=== PATIENT | male | born 1980 | race Caucasian/White ===

== ENCOUNTER → 2016-09-30 | Outpatient (CLI) | payer BC ==
[2016-09-30 18:22] LABS: ALT/SGPT 44 U/L (12-78); AST/SGOT 26 U/L (15-37); BLOOD UREA NITROGEN 8 mg/dl (7-18); BUN/CREATININE RATIO 8.1 (10-20); CALCIUM 9.2 mg/dl (8.5-10.1); CARBON DIOXIDE 31 mmol/L (21-32); CHLORIDE 104 mmol/L (98-107); CREATININE 0.99 mg/dl (0.60-1.40); GLUCOSE 87 mg/dl (70-99); POTASSIUM 3.9 mmol/L (3.5-5.1); SODIUM 141 mmol/L (136-145)
[2016-09-30 18:24] LABS: ALB/GLOB RATIO 1.4 (0.9-2); ALKALINE PHOSPHATASE 103 U/L (45-117); CHOLESTEROL 237 mg/dl (0-200); CHOLESTEROL/HDL RATIO 4.6; HDL CHOLESTEROL 51 mg/dl; LDL CHOLESTEROL CALCULATED 141 mg/dl; TRIGLYCERIDES 225 mg/dl (0-150); VERY LOW DENSITY LIPOPROT CALC 45 mg/dl
== END | disposition home or self-care (01) ==
LOC: C.LABPVFM 13:45
PROVIDERS: ATTEND Nurse Practitioner Family
DX: E78.00 Pure hypercholesterolemia, unspecified (principal); Z20.2 Contact with and (suspected) exposure to infections with a predominantly sexual mode of transmission

== ENCOUNTER 2017-07-11 02:21 | Observation (INO) | payer BC ==
[~2017-07-11] VITALS: Ht 172.7 cm; Wt 69.0 kg
[2017-07-11] VITALS (8 sets, daily range): BP systolic 109–117; BP diastolic 66–74; PULSE 69–77; TEMP 36.5–36.9; O2SAT 95–100; Ht 172.7 cm; Wt 69.0 kg
[2017-07-11] MEDS ORDERED: SODIUM CHLORIDE 0.9% 1000ML 1,000 ML IV STA (02:35)
[2017-07-11] MEDS ORDERED: MoRPHine SULFATE 10 MG/ML CARP/VIAL IV STA (02:35)
[2017-07-11] MEDS ORDERED: ONDANSETRON INJ 2 MG/ML 2 ML VIAL IV STA (02:35)
--- NOTE | 2017-07-11 02:38 | EMERGENCY ROOM VISIT NOTE ---
History Report prepared by Neginiblizzie: Shakira Lira Under the Supervision of: Dr. Jose Sr M.D. First contact with patient: 02:28 Chief Complaint: ABDOMINAL PAIN Stated Complaint: SEVERE ABDOMINAL PAIN History of Present Illness The patient is a 36 year old male who presents to the Emergency Room with complaints of constant severe abdominal pain beginning about 8 hours ago. The patient states that his pain radiates to his right side. He denies any urinary symptoms, diarrhea, or vomiting. The patient denies any recent falls or injuries. The patient works at [employer]. Source of History: patient Onset: 8 hours ago Position: abdomen Symptom Intensity: severe Timing: constant Associated Symptoms: No vomiting, No diarrhea, No urinary symptoms Review of Systems See HPI for pertinent positives & negatives. A total of 10 systems reviewed and were otherwise negative. Family History Patient reports no known family medical history. Social History Smoking Status: Never Smoker Marital Status: Housing Status: lives with significant other Occupation Status: employed Current/Historical Medications Scheduled PRN Oxycodone/Acetaminophen 5MG/325MG (Percocet 5MG/325MG), 1 TABLET PO Q4H PRN for Pain Allergies Coded Allergies: No Known Allergies (Unverified , 07/11/17) Physical Exam Vital Signs Date Time Temp Pulse Resp B/P (MAP) Pulse Ox O2 Delivery O2 Flow Rate FiO2 07/11/17 05:54 100 20 128/90 98 07/11/17 04:29 109 17 139/90 98 Room Air 07/11/17 02:25 36.9 74 20 127/87 98 Room Air Physical Exam GENERAL: Patient is uncomfortable appearing and in moderate distress. HEENT: No acute trauma, normocephalic atraumatic, mucous membranes moist, no nasal congestion, no scleral icterus. NECK: No stridor, no adenopathy, no meningismus, trachea is midline. LUNGS: No dyspnea. Clear to auscultation and equal bilaterally. No wheeze, no rhonchi. HEART: Regular rate and rhythm. No murmurs, rubs, gallops appreciated. ABDOMEN: Moderate RLQ tenderness to palpation. Soft, bowel sounds positive, no masses appreciated, no peritonitis. BACK: No midline tenderness, no CVA tenderness EXTREMITIES: Normal motion all extremities, no cyanosis, no edema. NEUROLOGIC: Alert and oriented, no acute motor or sensory deficits, no focal weakness, cranial nerves grossly intact. SKIN: No rash, no jaundice, no diaphoresis. Medical Decision & Procedures ER Provider Diagnostic Interpretation: Radiology results and stated below per my review and radiologist interpretation: CT ABDOMEN & PELVIS With Contrast: The appendix is enlarged (12 mm) with appendicoliths and surrounding inflammatory change. Findings consistent with acute appendicitis. No free air. No abscess. The liver spleen, pancreas, gallbladder, and kidneys are unremarkable. Radiologist: Brodie Corley MD Laboratory Results 07/11/17 02:40 Red Blood Count 5.09, Mean Corpuscular Volume 86.8, Mean Corpuscular Hemoglobin 31.4, Mean Corpuscular Hemoglobin Concent 36.2, Mean Platelet Volume 10.4, Neutrophils (%) (Auto) 86.4, Lymphocytes (%) (Auto) 7.5, Monocytes (%) (Auto) 5.0, Eosinophils (%) (Auto) 0.7, Basophils (%) (Auto) 0.1, Neutrophils # (Auto) 12.87, Lymphocytes # (Auto) 1.12, Monocytes # (Auto) 0.75, Eosinophils # (Auto) 0.10, Basophils # (Auto) 0.01 07/11/17 02:40 Test 07/11/17 02:40 07/11/17 02:50 White Blood Count 14.89 K/uL (4.8-10.8) Red Blood Count 5.09 M/uL (4.7-6.1) Hemoglobin 16.0 g/dL (14.0-18.0) Hematocrit 44.2 % (42-52) Mean Corpuscular Volume 86.8 fL (80-100) Mean Corpuscular Hemoglobin 31.4 pg (25-34) Mean Corpuscular Hemoglobin Concent 36.2 g/dl (32-36) Platelet Count 242 K/uL (130-400) Mean Platelet Volume 10.4 fL (7.4-10.4) Neutrophils (%) (Auto) 86.4 % Lymphocytes (%) (Auto) 7.5 % Monocytes (%) (Auto) 5.0 % Eosinophils (%) (Auto) 0.7 % Basophils (%) (Auto) 0.1 % Neutrophils # (Auto) 12.87 K/uL (1.4-6.5) Lymphocytes # (Auto) 1.12 K/uL (1.2-3.4) Monocytes # (Auto) 0.75 K/uL (0.11-0.59) Eosinophils # (Auto) 0.10 K/uL (0-0.5) Basophils # (Auto) 0.01 K/uL (0-0.2) RDW Standard Deviation 39.1 fL (36.4-46.3) RDW Coefficient of Variation 12.3 % (11.5-14.5) Immature Granulocyte % (Auto) 0.3 % Immature Granulocyte # (Auto) 0.04 K/uL (0.00-0.02) Est Creatinine Clear Calc Drug Dose 94.4 ml/min Estimated GFR () 106.1 Estimated GFR (Non- 91.5 BUN/Creatinine Ratio 11.2 (10-20) Calcium Level 9.9 mg/dl (8.5-10.1) Total Bilirubin 1.3 mg/dl (0.2-1) Direct Bilirubin 0.2 mg/dl (0-0.2) Aspartate Amino Transf (AST/SGOT) 19 U/L (15-37) Alanine Aminotransferase (ALT/SGPT) 35 U/L (12-78) Alkaline Phosphatase 95 U/L (45-117) Total Protein 8.0 gm/dl (6.4-8.2) Albumin 4.3 gm/dl (3.4-5.0) Lipase 215 U/L (73-393) Bedside Hemoglobin 15.6 g/dl (14.0-18.0) Bedside Hematocrit 46 % (42-52) Bedside Sodium 142 mEq/L (135-144) Bedside Potassium 3.5 mEq/L (3.3-5.0) Bedside Chloride 100 mEq/L (101-112) Bedside Total CO2 29 mEq/l (24-31) Anion Gap 17.0 mmol/L (16-25) Bedside Blood Urea Nitrogen 11 mg/dl (7-18) Bedside Creatinine 1.0 mg/dl (0.6-1.3) Bedside Glucose (other) 113 mg/dl (70-99) Bedside Ionized Calcium (Clint) 1.29 mmol/l (1.12-1.32) Laboratory results as reviewed by me. Medications Administered Medications (Trade) Dose Ordered Sig/Becca Route Start Time Stop Time Status Last Admin Dose Admin Sodium Chloride 1,000 ml @ 999 mls/hr Q1H1M STAT IV 07/11/17 02:35 07/11/17 03:35 DC 07/11/17 02:35 999 MLS/HR Morphine Sulfate (MoRPHine SULFATE INJ) 8 mg NOW STAT IV 07/11/17 02:35 07/11/17 02:37 DC 07/11/17 02:44 8 MG Ondansetron HCl (Zofran Inj) 4 mg NOW STAT IV 07/11/17 02:35 07/11/17 02:37 DC 07/11/17 02:43 4 MG Cefoxitin Sodium 2000 mg/Dextrose 60 ml @ 120 mls/hr TODAY@0331 IV 07/11/17 03:31 07/11/17 04:00 DC 07/11/17 04:14 120 MLS/HR Lidocaine HCl (Xylocaine 1% Inj (Local)) 20 ml STK-MED ONCE .ROUTE 07/11/17 05:12 07/11/17 05:13 DC 07/11/17 07:04 9 ML Bacitracin (Bacitracin Oint) 45 appln STK-MED ONCE .ROUTE 07/11/17 05:12 07/11/17 05:13 DC 07/11/17 07:03 10 APPLN Bupivacaine HCl (Marcaine 0.5% MPF Inj) 30 ml STK-MED ONCE .ROUTE 07/11/17 05:12 07/11/17 05:13 DC 07/11/17 07:04 9 ML ED Course 0229: The patient was evaluated in room B7. A complete history and physical exam was performed. 0235: Ordered Zofran Inj 4 mg IV, Morphine Sulfate 8 mg IV, Sodium Chloride 1000 ml @ 999 mls/hr. 0344: Ordered Cefoxitin Sodium 2000 mg IV. 0350: Discussed the patient's case with Dr. Camarena-General Surgery. The patient will be evaluated for further treatment and disposition. 0422: Dr. Camarena will be taking the patient to the OR. Medical Decision Differential: Appendicitis, , MSK, Diverticulitis, UTI, Renal Colic, Bowel Obstruction, Aortic Pathology, amongst other pathologies entertained. Pleasant 36 yr old male with acute worsening RLQ abdominal pain and exam consistent with acute appendicitis, as is WBC elevation. Given how quickly this came on however I felt that imaging was warranted which confirmed diagnosis. Gen Surg in to see and took him to OR. Medication Reconcilliation Current Medication List: was personally reviewed by me Blood Pressure Screening Patient's blood pressure: Elevated blood pressure Blood pressure disposition: Referred to PCP (evaluated by surgeon ) Consults Time Called: [phone] Consulting Physician: Dr. Camarena-General Surgery Returned Call: [phone] Discussed the patient's case. The patient will be evaluated for further treatment and disposition. Impression Primary Impression: Acute appendicitis Scribe Attestation The scribe's documentation has been prepared under my direction and personally reviewed by me in its entirety. I confirm that the note above accurately reflects all work, treatment, procedures, and medical decision making performed by me. Departure Information Dispostion Other (Being taken to OR) Prescriptions Oxycodone/Acetaminophen 5MG/325MG (PERCOCET 5MG/325MG) Tab 1 TABLET PO Q4H Y for Pain, #18 TAB Prov: Marti Mckenzie ., JANELLE 07/11/17 Referrals Apoorva Hernandez (PCP) Patient Instructions My [facility]
[2017-07-11 02:55] LABS: BASO % 0.1 %; BASO ABS # 0.01 K/uL (0-0.2); COMPLETE YES; EOS % 0.7 %; HEMATOCRIT 44.2 % (42-52); IG% 0.3 %; LYMPH % 7.5 %; LYMPH ABS # 1.12 K/uL (1.2-3.4); MEAN CELL VOLUME 86.8 fL (80-100); MEAN CORPUSCULAR HEMOGLOBIN 31.4 pg (25-34); MEAN CORPUSCULAR HGB CONC 36.2 g/dl (32-36); MEAN PLATELET VOLUME 10.4 fL (7.4-10.4); NEUT % 86.4 %; PLATELET COUNT 242 K/uL (130-400); RED BLOOD COUNT 5.09 M/uL (4.7-6.1); WHITE BLOOD COUNT 14.89 K/uL (4.8-10.8)
[2017-07-11] MEDS ORDERED: OPTIRAY 320 IV PRN (03:00)
[2017-07-11 03:02] LABS: ISTAT HEMOGLOBIN 15.6 g/dl (14.0-18.0); ISTAT IONIZED CALCIUM 1.29 mmol/l (1.12-1.32)
[2017-07-11 03:14] LABS: BUN/CREATININE RATIO 11.2 (10-20); CALCIUM 9.9 mg/dl (8.5-10.1); CREATININE 1.05 mg/dl (0.60-1.40); POTASSIUM 3.4 mmol/L (3.5-5.1)
[2017-07-11] MEDS ORDERED: CEFOXITIN IV 2,000 MG in DEXTROSE 5% 50ML 50 ML IV SCH (03:31)
[2017-07-11] MEDS ORDERED: CEFOXITIN 2000MG/60 ML D5W IV STA (03:44)
[2017-07-11] MEDS ORDERED: HYDROmorphone INJ 1 MG/ML SYR IV PRN ×2 (04:00→07:30)
--- NOTE | 2017-07-11 04:20 | Surgery Consultation ---
Consultation Date of Consultation: Jul 11, 2017. Attending Physician: History of Present Illness The patient is a 36 year old male who presents to the Emergency Room with complaints of constant severe abdominal pain beginning about 8 hours ago. The patient states that his pain radiates to his right side. He denies any urinary symptoms, diarrhea, or vomiting. The patient denies any recent falls or injuries. The patient works at [employer]. I saw pt at ER, reviewed pt's H/P with pt, pt is still have RLQ pain, with nausea, no vomiting, pt denies fever. no diarrhea. Past Medical/Surgical History Medical Problems: (1) Finger sprain Status: Acute Family History Patient reports no known family medical history. Social History Smoking Status: Never Smoker Smokeless Tobacco Use: No Alcohol Use: none Drug Use: none Marital Status: Housing Status: lives with significant other Occupation Status: employed Allergies Coded Allergies: No Known Allergies (Unverified , 07/11/17) Home Medications No Active Prescriptions or Reported Meds Current Inpatient Medications Current Inpatient Medications Medications (Trade) Dose Ordered Sig/Becca Route Start Time Stop Time Status Last Admin Dose Admin Ioversol (Optiray 320) 100 ml UD PRN IV 07/11/17 03:00 07/15/17 02:59 Hydromorphone HCl (Dilaudid Inj) 1 mg Q1H PRN IV 07/11/17 04:00 07/25/17 03:59 Review of Systems Constitutional: No fever, No chills, No sweats, No weight loss, No weakness, No fatigue, No problem reported Eyes: No worsening of vision, No eye pain, No redness, No discharge, No diplopia, No problem reported ENT: No hearing loss, No unusual epistaxis, No nasal symptoms, No sore throat, No tinnitus, No dental problems, No trouble swallowing, No problem reported Respiratory: No cough, No sputum, No wheezing, No shortness of breath, No dyspnea on exertion, No dyspnea at rest, No hemoptysis, No problem reported Cardiovascular: No chest pain, No orthopnea, No PND, No edema, No claudication , No palpitations, No problem reported Abdomen: + pain, + nausea Musculoskeletal: No joint pain, No muscle pain, No swelling, No calf pain, No problem reported Genitourinary - Male: No hematuria, No dysuria, No urinary frequency, No urinary urgency, No urinary hesitancy, No urinary retention, No urinary incontinence, No penile discharge, No lesions, No impotence, No problem reported Neurologic: No memory loss, No paralysis, No weakness, No numbness/tingling, No vertigo, No balance problems, No problem reported Psychiatric: No depression symptoms, No anhedonism, No anxiety, No insomnia, No substance abuse, No problem reported Endocrine: No fatigue, No excessive thirst, No excessive urination, No problem reported Hematologic / Lymphatic: No abnormal bleeding/bruising, No clotting problems, No swollen lymph nodes, No night sweats, No problem reported Physical Exam Date Time Temp Pulse Resp B/P (MAP) Pulse Ox O2 Delivery O2 Flow Rate FiO2 07/11/17 02:25 36.9 74 20 127/87 98 Room Air General Appearance: WD/WN, + mild distress Head: normocephalic Eyes: normal inspection ENT: normal ENT inspection Neck: supple, no JVD Respiratory/Chest: chest non-tender, lungs clear, normal breath sounds, no respiratory distress Cardiovascular: regular rate, rhythm, no edema, no gallop, no JVD, no murmur Abdomen/GI: normal bowel sounds, soft, no organomegaly, no pulsatile mass, normal rectal exam, + tenderness (at RLQ, no rebound pain) Extremities/Musculoskelatal: normal inspection, no calf tenderness, normal capillary refill Neurologic/Psych: no motor/sensory deficits, alert, normal mood/affect Skin: normal color, warm/dry, no rash Laboratory Results Last 24 Hours Test 07/11/17 02:40 07/11/17 02:50 White Blood Count 14.89 K/uL Red Blood Count 5.09 M/uL Hemoglobin 16.0 g/dL Hematocrit 44.2 % Mean Corpuscular Volume 86.8 fL Mean Corpuscular Hemoglobin 31.4 pg Mean Corpuscular Hemoglobin Concent 36.2 g/dl Platelet Count 242 K/uL Mean Platelet Volume 10.4 fL Neutrophils (%) (Auto) 86.4 % Lymphocytes (%) (Auto) 7.5 % Monocytes (%) (Auto) 5.0 % Eosinophils (%) (Auto) 0.7 % Basophils (%) (Auto) 0.1 % Neutrophils # (Auto) 12.87 K/uL Lymphocytes # (Auto) 1.12 K/uL Monocytes # (Auto) 0.75 K/uL Eosinophils # (Auto) 0.10 K/uL Basophils # (Auto) 0.01 K/uL RDW Standard Deviation 39.1 fL RDW Coefficient of Variation 12.3 % Immature Granulocyte % (Auto) 0.3 % Immature Granulocyte # (Auto) 0.04 K/uL Sodium Level 138 mmol/L Potassium Level 3.4 mmol/L Chloride Level 103 mmol/L Carbon Dioxide Level 30 mmol/L Anion Gap 5.0 mmol/L 17.0 mmol/L Blood Urea Nitrogen 12 mg/dl Creatinine 1.05 mg/dl Est Creatinine Clear Calc Drug Dose 94.4 ml/min Estimated GFR () 106.1 Estimated GFR (Non- 91.5 BUN/Creatinine Ratio 11.2 Random Glucose 109 mg/dl Calcium Level 9.9 mg/dl Total Bilirubin 1.3 mg/dl Direct Bilirubin 0.2 mg/dl Aspartate Amino Transf (AST/SGOT) 19 U/L Alanine Aminotransferase (ALT/SGPT) 35 U/L Alkaline Phosphatase 95 U/L Total Protein 8.0 gm/dl Albumin 4.3 gm/dl Lipase 215 U/L Bedside Hemoglobin 15.6 g/dl Bedside Hematocrit 46 % Bedside Sodium 142 mEq/L Bedside Potassium 3.5 mEq/L Bedside Chloride 100 mEq/L Bedside Total CO2 29 mEq/l Bedside Blood Urea Nitrogen 11 mg/dl Bedside Creatinine 1.0 mg/dl Bedside Glucose (other) 113 mg/dl Bedside Ionized Calcium (Clint) 1.29 mmol/l Assessment & Plan CT scan- acute appendicitis Assessment:, pt is a 36 year old male who presents with 10 hours history RLQ pain, CT scan DX- acute appendicitis IMP: acute appendicitis Plan, I recommend to do laparoscopic appendectomy, possible open, D/W benefits, risks and alternatives of the procedure, the risks -infection, bleeding, abscess , injury bowel, pt understood, he agrees with the surgery, I answered all questions.
[2017-07-11] MEDS ORDERED: BACITRACIN OINT 15 GM TUBE ONE (05:12)
[2017-07-11] MEDS ORDERED: LIDOCAINE HCL 1% 20 ML VIAL ONE (05:12)
[2017-07-11] MEDS ORDERED: BUPIVACAINE 0.5 % 5 MG/1 ML MPF 30ML VIAL ONE (05:12)
--- NOTE | 2017-07-11 05:52 | History & Physical Bridge Note ---
H&P Re-Evaluation Bridge Note: I have examined the patient, reviewed the History & Physical and in the interval since the performance of the History & Physical I have noted the following changes of clinical significance: No changes noted
[2017-07-11] MEDS ORDERED: FENTANYL CITRATE INJ 50 MCG/1 ML 2 ML VIAL ONE ×2 (05:56→06:32)
[2017-07-11] MEDS ORDERED: MIDAZOLAM HCL 1 MG/ML 2ML VIAL ONE (05:56)
[2017-07-11] MEDS ORDERED: HYDROmorphone INJ 2 MG/ML SYR/VIAL ONE (06:31)
[2017-07-11] MEDS ORDERED: SUCCINYLCHOLINE CHLORIDE 20 MG/ML 10 ML VIAL IV ONE (06:43)
[2017-07-11] MEDS ORDERED: LIDOCAINE HCL 2% 2 ML VIAL (20MG/ML) ONE (06:43)
[2017-07-11] MEDS ORDERED: PROPOFOL IV EMULSION 10 MG/ML 20 ML VIAL IV ONE (06:43)
[2017-07-11] MEDS ORDERED: DEXAMETHASONE SOD INJ 4 MG/ML VIAL ONE (06:43)
[2017-07-11] MEDS ORDERED: HYDROmorphone INJ 0.5 MG/0.5 ML SYR IV PRN (07:15)
[2017-07-11] MEDS ORDERED: ONDANSETRON INJ 2 MG/ML 2 ML VIAL IV PRN ×2 (07:15→07:30)
[2017-07-11] MEDS ORDERED: FENTANYL CITRATE INJ 50 MCG/1 ML 2 ML VIAL IV PRN (07:15)
[2017-07-11] MEDS ORDERED: ATROPINE SULFATE 0.1 MG/ML 5ML SYR IV PRN (07:15)
[2017-07-11] MEDS ORDERED: PROMETHAZINE HCL INJ 12.5 MG in SODIUM CHLORIDE 0.9% 50ML 50 ML IV PRN (07:15)
[2017-07-11] MEDS ORDERED: EpHEDrine SULFATE INJ 50 MG/ML AMP IV PRN (07:15)
--- NOTE | 2017-07-11 07:24 | [facility] Post Operative Brief Note ---
Immediate Operative Summary Operative Date Jul 11, 2017. Pre-Operative Diagnosis Acute Appendicitis Post-Operative Diagnosis Acute Appendicitis Procedure(s) Performed Laparoscopic Appendectomy Surgeon Dr. Roni Camarena Instructor Adjunct Pharmacy Technician Surgeon(s) None Estimated Blood Loss 5ml Findings acute appendicitis Fluids (cc crystalloids) 1300ml Specimens A. Appendix Drains none Anesthesia general Complication(s) None Disposition Recovery Room / PACU
--- NOTE | 2017-07-11 07:26 | DIAGNOSTIC IMAGING REPORT ---
ABDOMEN AND PELVIS CT WITH IV CONTRAST CT DOSE: 296.89 mGy.cm HISTORY: Right lower quadrant abdominal pain. TECHNIQUE: Multiaxial CT images of the abdomen and pelvis were performed following the use of intravenous contrast. A dose lowering technique was utilized adhering to the principles of ALARA. COMPARISON STUDY: None. FINDINGS: The lung bases are clear. The liver, gallbladder, spleen, adrenal glands, kidneys, and pancreas are unremarkable. No retroperitoneal lymphadenopathy. The appendix is fluid-filled and distended up to 11 mm and contains an appendicolith. There is mild periappendiceal fat stranding. Findings are consistent with acute appendicitis. No evidence for bowel obstruction. Normal bladder. No retroperitoneal lymphadenopathy. IMPRESSION: Acute appendicitis containing a few appendicoliths. No perforation or abscess identified at this time. Electronically signed by: Vidal Pickett M.D. 07/11/2017 7:25 AM Dictated Date/Time: 07/11/2017 7:15 AM
[2017-07-11] MEDS ORDERED: ACETAMINOPHEN 325 MG TAB PO PRN (07:30)
[2017-07-11] MEDS ORDERED: OXYCODONE/ACETAMINOPHEN 5-325 TAB PO PRN (07:30)
[2017-07-11] MEDS ORDERED: IV FLUIDS COMPLETED PRN (07:45)
--- NOTE | 2017-07-11 08:34 | OPERATIVE REPORT ---
DATE OF OPERATION: 07/11/2017 PREOPERATIVE DIAGNOSIS: Acute appendicitis. POSTOPERATIVE DIAGNOSIS: Same. PROCEDURE: Laparoscopic appendectomy. SURGEON: Roni Camarena MD. ANESTHESIA: General. ESTIMATED BLOOD LOSS: About 5 mL. FINDINGS: Acute appendicitis. COMPLICATIONS: None. INDICATIONS FOR THE PROCEDURE: This is a 36-year-old gentleman who presented to the ED with 1 day history of right lower quadrant pain. The patient had a CT scan showing acute appendicitis. We decided to take the patient to the OR to do the laparoscopic appendectomy, possible open. I did talk to the patient about the benefit, risk and alternate of procedure. I indicated the risks may include but not limited such as bleeding, infection, abscess, injury to bowel. The patient understands. He signed informed consent. He agreed to proceed with the procedure. I answered all questions. DETAILS OF PROCEDURE: We brought the patient to the OR, put the patient in the supine position. The patient received SCD on bilateral legs to prevent DVT. Also, the patient received 2 gram cefoxitin IV for prophylactic antibiotic. The patient received general anesthesia without difficulty. The abdomen was prepped and draped in routine sterile fashion. After time out, I injected the local anesthesia by using 1% lidocaine mixed with 0.5% Marcaine just above umbilical, opened the lengthy incision just above umbilical, opened the fascia, opened peritoneum under direct vision. I put a Chinyere trocar in, connected to CO2 to create pneumoperitoneum. Flow rate is 6 liter per minute. Pressure not more than 14 mmHg. Once we got a nice pneumoperitoneum, we put a camera in and looked around the abdomen and showed normal findings on the stomach, small bowel, large bowel and liver. However, the appendix showed acute appendicitis with significant inflammation and enlarged appendix. Then, we put another two 5 mm trocar on the left lower quadrant area and then I used the harmonic to take down the appendiceal, rechecked no active bleeding. Then I used the Endo-SUN stable and transection at the base of the appendix, rechecked no active bleeding, no leak. Then we removed the appendix through the catcher bag. Then we reinserted Chinyere trocar in and connected to CO2 to create pneumoperitoneum again to look around the abdomen. No active bleeding, no leak from bowel, no injury to bowel. Then we removed all trocar under direct vision. No active bleeding from trocar sites. The pneumoperitoneum was released. Then I closed the umbilical incision, fascial layer by using #1 Vicryl [id number] x2, closed subcutaneous layer by using 2-0 Vicryl interruptedly and closed skin layers of 4-0 Vicryl continuous running. We closed another two 5 mm trocar site skin only by using 4-0 Vicryl. We put the dressing on. The patient tolerated the procedure well. All the instrument, needle and sponge count correct x2 at the end of case. The patient transferred to recovery room in stable condition. I did talk to the patient and family member about OR finding and procedure we did after procedure, they understand. I attest to the content of the Intraoperative Record and any orders documented therein. Any exception s are noted below.
--- NOTE | 2017-07-11 08:38 | Anesthesiology Progress Note ---
Anesthesia Post Op Note Date & Time Jul 11, 2017 at 08:38 Vital Signs Pain Intensity: 0 Vital Signs Past 12 Hours Date Time Temp Pulse Resp B/P (MAP) Pulse Ox O2 Delivery O2 Flow Rate FiO2 07/11/17 08:10 36.8 71 19 118/76 97 Nasal Cannula 2 07/11/17 08:00 72 17 119/76 96 Nasal Cannula 2 07/11/17 07:50 76 13 125/71 100 Nasal Cannula 4 07/11/17 07:40 69 14 124/71 100 Nasal Cannula 4 07/11/17 07:34 36.6 69 12 116/59 90 Room Air 07/11/17 05:54 100 20 128/90 98 07/11/17 04:29 109 17 139/90 98 Room Air 07/11/17 02:25 36.9 74 20 127/87 98 Room Air Notes Mental Status: alert / awake / arousable, participated in evaluation Pt Amnestic to Procedure: Yes Nausea / Vomiting: adequately controlled Pain: adequately controlled Airway Patency, RR, SpO2: stable & adequate BP & HR: stable & adequate Hydration State: stable & adequate Anesthetic Complications: no major complications apparent
[2017-07-11] MEDS ORDERED: D5W AND 1/2NSS + 20MEQ KCL 1,000 ML IV SCH (09:00)
[2017-07-11] MEDS ORDERED: OXYC-57 PO (12:17)
--- NOTE | 2017-07-11 12:23 | Discharge Instructions ---
Discharge Instructions Date of Service Jul 11, 2017. Admission Reason for Admission: Acute Appendicitis Discharge Discharge Diagnosis / Problem: same Discharge Goals Goal(s): Decrease discomfort, Improve function Activity Recommendations Activity Limitations: as noted below No heavy lifting over 20 pounds for 2 weeks No strenuous activity until cleared by surgeon No submerging incisions underwater for 2 weeks (no bathing, swimming, or hot tubs) No driving while taking narcotic pain medication or until you are pain free . Instructions / Follow-Up Instructions / Follow-Up You may shower in 4 days and then remove dressings. Sponge bath and wash hair in meantime. Try to keep dressings clean and dry After 4 day remove outer dressings. Leave steri strips on incisions for 7 days and then remove. Replace outer dressings daily after showering. Light activity and walking is encouraged You will be given narcotic pain medication (Percocet) as needed for moderate to severe pain. This medication may make you drowsy. You may take extra strength Tylenol or Ibuprofen as needed for mild pain. Follow-up in surgical office in 1-2 weeks please call [phone] to make an appointment You may return to work on Monday07/17/2017 with light duty Current Hospital Diet Patient's current hospital diet: Clear Liquid Diet Discharge Diet Recommended Diet: Full Liquid Diet (and then slowly advance to regular diet as tolerated, smaller frequent meals for next few days) Procedures Procedures Performed: Laparoscopic Appendectomy Pending Studies Studies pending at discharge: yes List of pending studies: appendix pathology will be reviewed at follow up visit Medical Emergencies . Who to Call and When: Medical Emergencies: If at any time you feel your situation is an emergency, please call 911 immediately. . Non-Emergent Contact Non-Emergency issues call your: Primary Care Provider, Surgeon Call Non-Emergent contact if: you have a fever, temperature is above 101, your pain is not controlled, your pain is worsening, your pain is unusual for you, wound has increased drainage, wound has increased redness, wound has increased pain . "Provider Documentation" section prepared by Marti Mckenzie. . VTE Core Measure Inpt VTE Proph given/why not?: SCD's [place] Drug Monitoring Program Search Results: patient reviewed within database, no issues identified
--- NOTE | 2017-07-11 12:25 | Surgery Progress Note ---
Surgery Progress Note Date of Service Jul 11, 2017. Subjective Post OP Day: POD # 0 s/p laparoscopic appendectomy + feeling well, + pain controlled, + nausea (after broth but not after other clear liquids), + diet (tolerating most of clear liquids), No complaints, No vomiting Objective Vital Signs: Date Time Temp Pulse Resp B/P (MAP) Pulse Ox O2 Delivery O2 Flow Rate FiO2 07/11/17 11:25 36.9 69 20 109/66 (80) 96 Room Air 07/11/17 10:25 36.5 69 16 116/72 (87) 99 Nasal Cannula 2.0 07/11/17 09:28 77 18 110/74 (86) 100 Nasal Cannula 2.0 07/11/17 08:55 75 18 112/74 (87) 99 Nasal Cannula 2.0 07/11/17 08:48 36.9 73 16 117/73 95 Nasal Cannula 2.0 07/11/17 08:45 95 Nasal Cannula 2.0 07/11/17 08:25 95 Nasal Cannula 2.0 07/11/17 08:25 36.9 73 16 117/73 (88) 98 Nasal Cannula 2.0 07/11/17 08:10 36.8 71 19 118/76 97 Nasal Cannula 2 07/11/17 08:00 72 17 119/76 96 Nasal Cannula 2 07/11/17 07:50 76 13 125/71 100 Nasal Cannula 4 07/11/17 07:40 69 14 124/71 100 Nasal Cannula 4 07/11/17 07:34 36.6 69 12 116/59 90 Room Air 07/11/17 05:54 100 20 128/90 98 07/11/17 04:29 109 17 139/90 98 Room Air 07/11/17 02:25 36.9 74 20 127/87 98 Room Air General Appearance: WD/WN, no apparent distress Head: normocephalic, atraumatic Neck: trachea midline Respiratory/Chest: no respiratory distress, no accessory muscle use Abdomen: non distended, soft, no organomegaly, no pulsatile mass Incision(s): clean, dry (dressings clean and dry) Laboratory Results: Results Past 24 Hours Test 07/11/17 02:40 07/11/17 02:50 Range/Units White Blood Count 14.89 4.8-10.8 K/uL Red Blood Count 5.09 4.7-6.1 M/uL Hemoglobin 16.0 14.0-18.0 g/dL Hematocrit 44.2 42-52 % Mean Corpuscular Volume 86.8 80-100 fL Mean Corpuscular Hemoglobin 31.4 25-34 pg Mean Corpuscular Hemoglobin Concent 36.2 32-36 g/dl Platelet Count 242 130-400 K/uL Mean Platelet Volume 10.4 7.4-10.4 fL Neutrophils (%) (Auto) 86.4 % Lymphocytes (%) (Auto) 7.5 % Monocytes (%) (Auto) 5.0 % Eosinophils (%) (Auto) 0.7 % Basophils (%) (Auto) 0.1 % Neutrophils # (Auto) 12.87 1.4-6.5 K/uL Lymphocytes # (Auto) 1.12 1.2-3.4 K/uL Monocytes # (Auto) 0.75 0.11-0.59 K/uL Eosinophils # (Auto) 0.10 0-0.5 K/uL Basophils # (Auto) 0.01 0-0.2 K/uL RDW Standard Deviation 39.1 36.4-46.3 fL RDW Coefficient of Variation 12.3 11.5-14.5 % Immature Granulocyte % (Auto) 0.3 % Immature Granulocyte # (Auto) 0.04 0.00-0.02 K/uL Sodium Level 138 136-145 mmol/L Potassium Level 3.4 3.5-5.1 mmol/L Chloride Level 103 98-107 mmol/L Carbon Dioxide Level 30 21-32 mmol/L Anion Gap 5.0 17.0 16-25 mmol/L Blood Urea Nitrogen 12 7-18 mg/dl Creatinine 1.05 0.60-1.40 mg/dl Est Creatinine Clear Calc Drug Dose 94.4 ml/min Estimated GFR () 106.1 Estimated GFR (Non- 91.5 BUN/Creatinine Ratio 11.2 10-20 Random Glucose 109 70-99 mg/dl Calcium Level 9.9 8.5-10.1 mg/dl Total Bilirubin 1.3 0.2-1 mg/dl Direct Bilirubin 0.2 0-0.2 mg/dl Aspartate Amino Transf (AST/SGOT) 19 15-37 U/L Alanine Aminotransferase (ALT/SGPT) 35 12-78 U/L Alkaline Phosphatase 95 45-117 U/L Total Protein 8.0 6.4-8.2 gm/dl Albumin 4.3 3.4-5.0 gm/dl Lipase 215 73-393 U/L Bedside Hemoglobin 15.6 14.0-18.0 g/dl Bedside Hematocrit 46 42-52 % Bedside Sodium 142 135-144 mEq/L Bedside Potassium 3.5 3.3-5.0 mEq/L Bedside Chloride 100 101-112 mEq/L Bedside Total CO2 29 24-31 mEq/l Bedside Blood Urea Nitrogen 11 7-18 mg/dl Bedside Creatinine 1.0 0.6-1.3 mg/dl Bedside Glucose (other) 113 70-99 mg/dl Bedside Ionized Calcium (Clint) 1.29 1.12-1.32 mmol/l Assessment & Plan POD # 0 s/p laparoscopic appendectomy -vitals stable - pain controlled - tolerating clear liquids Plan: May be discharged later today Rx for Percocet as needed for pain discharge instructions reviewed with patient Return to work on Tuesday 07/17 with restrictions Follow-up office in 1-[address] Camarena has seen patient, agrees with above
[2017-07-11] MEDS ORDERED: CEFTRIAXONE SOD INJ 1 GM in DEXTROSE 5% ADD-VANTAGE 50ML 50 ML IV SCH (16:00)
--- NOTE | 2017-07-19 13:20 | Discharge Summary ---
Discharge Summary Dates Admission Date / Time: Jul 11, 2017 at 07:28 Discharge Date: Jul 11, 2017 Dispostion / Condition Discharge Disposition: Home Condition at Discharge: Good Principal Diagnosis (1) Acute appendicitis Problem List (1) Left knee pain Consultations / Procedures Procedures: Laparoscopic Appendectomy Pending Studies / Follow-Up Appendix pathology will be reviewed at follow up visit Medication Reconciliation New Medications: Oxycodone/Acetaminophen 5MG/325MG (Percocet 5MG/325MG) Tab 1 TABLET PO Q4H PRN for Pain, #18 TAB Admission HPI Per the Admitting provider: The patient is a 36 year old male who presents to the Emergency Room with complaints of constant severe abdominal pain beginning about 8 hours ago. The patient states that his pain radiates to his right side. He denies any urinary symptoms, diarrhea, or vomiting. The patient denies any recent falls or injuries. The patient works at [employer]. I saw pt at ER, reviewed pt's H/P with pt, pt is still have RLQ pain, with nausea, no vomiting, pt denies fever. no diarrhea. Hospital Course (1) Acute appendicitis Patient was taken to operating room for laparoscopic possible open appendectomy. Patient tolerated procedure well without any complications. Was transferred to recovery room and then to medical/surgical floor for post operative care in stable condition. He was started on Clear liquids, IV fluids , IV Zofran as needed for nausea, PO Percocet as needed for pain with IV Dilaudid as breakthrough, activity as tolerated, and SCDs. He was also given dose of post op antibiotic of Ceftriaxone. He was evaluated later in the morning on POD # 0. Patient was feeling better. Preoperative pain resolved. Moderate surgical pain at incisions. Slight nausea with broth however tolerated rest of clear liquids. Afebrile since surgery. Was ready to go home. He was discharged home later on POD # 0. Overall hospital course was uneventful. Discharge Instructions as given to patient Copies To Primary Care Provider: Apoorva Hernandez.
== END 2017-07-11 13:00 | disposition home or self-care (01) ==
LOC: C.EDB 02:22 → C.3E 07:28 → ENRESERV 07:56
PROVIDERS: ADMIT Surgery; ATTEND Surgery
DX: K35.80 Unspecified acute appendicitis (principal)

== ENCOUNTER → 2018-03-07 | Outpatient (CLI) | payer BC ==
[~2018-03-07] MED LIST: ACET-1311 PO; MULT-506 PO; OXYC-57 PO; VITAMIN B12 PO
[2018-03-07 13:00] LABS: HEMOGLOBIN 16.5 g/dL (14.0-18.0); MEAN CELL VOLUME 87.5 fL (80-100); MEAN CORPUSCULAR HEMOGLOBIN 30.7 pg (25-34); MEAN CORPUSCULAR HGB CONC 35.1 g/dl (32-36); MEAN PLATELET VOLUME 11.2 fL (7.4-10.4); PLATELET COUNT 224 K/uL (130-400); RED CELL DISTRIBUTION WIDTH CV 12.5 % (11.5-14.5); RED CELL DISTRIBUTION WIDTH SD 39.9 fL (36.4-46.3); WHITE BLOOD COUNT 4.95 K/uL (4.8-10.8)
[2018-03-07 13:46] LABS: ALBUMIN 4.2 gm/dl (3.4-5.0); ALKALINE PHOSPHATASE 105 U/L (45-117); ALT/SGPT 82 U/L (12-78); AST/SGOT 38 U/L (15-37); BLOOD UREA NITROGEN 10 mg/dl (7-18); CALCIUM 9.3 mg/dl (8.5-10.1); CARBON DIOXIDE 27 mmol/L (21-32); CHOLESTEROL 220 mg/dl (0-200); CREATININE 0.99 mg/dl (0.60-1.40); GLUCOSE 89 mg/dl (70-99); LDL CHOLESTEROL CALCULATED 135 mg/dl; POTASSIUM 3.8 mmol/L (3.5-5.1); SODIUM 138 mmol/L (136-145); TOTAL PROTEIN 7.9 gm/dl (6.4-8.2)
== END | disposition home or self-care (01) ==
LOC: C.LAB 11:24
PROVIDERS: ATTEND Internal Medicine
DX: Z00.00 Encounter for general adult medical examination without abnormal findings (principal); E78.00 Pure hypercholesterolemia, unspecified; R53.83 Other fatigue

== ENCOUNTER → 2018-03-15 | Day surgery (SDC) | payer BC ==
[2018-03-01 08:37] VITALS: Ht 172.7 cm; Wt 72.7 kg
--- NOTE | 2018-03-13 08:28 | History and Physical: Surg Cnt ---
History & Physical Date Mar 13, 2018. Chief Complaint nasal obstruction History of Present Illness The patient is a 37 year old male with complaints of deviated septum, snoring Additional History Hepatic Disease: No Endocrine Disorder: No Kidney Disease: No Hypertension: No Heart Disease: No Bleeding Tendencies: No Infectious Diseases: No Allergies Coded Allergies: No Known Allergies (Unverified , 03/01/18) Home Medications Scheduled Acetaminophen (Tylenol), 650 MG PO QAM Multivitamin (Multivitamin), 1 TAB PO QAM [Vitamin B12], 1 TAB PO QAM Physical Examination Skin: warm/dry, no rash Eyes: normal inspection, EOMI, sclerae normal ENT: normal ENT inspection, pharynx normal Head: normocephalic, atraumatic Neck: supple, no adenopathy, trachea midline Respiratory/Chest: lungs clear, normal breath sounds, no respiratory distress Cardiovascular: regular rate, rhythm, no edema, no murmur Abdomen / GI: normal bowel sounds, non tender Back: normal inspection Extremities: normal inspection, normal range of motion Neurologic/Psych: no motor/sensory deficits, alert, normal reflexes, oriented x 3 Diagnosis septal deviation Plan of Treatment septoplasty, Celon turbinates
[~2018-03-15] VITALS: Ht 172.7 cm; Wt 72.7 kg
[~2018-03-15] MED LIST changes: +ATROPINE SULFATE 0.1 MG/ML 5ML SYR IV PRN; +BACITRACIN OINT 15 GM TUBE ONE; +CEFAZOLIN 1000MG IV PUSH 7.5 ML IV SCH; +CEFAZOLIN SOD 1 GM VIAL ONE; +EpHEDrine SULFATE INJ 50 MG/ML AMP IV PRN; +EpINEphrine INJ 1MG/ML AMP 1 MG/ML AMP ONE; +FENTANYL CITRATE INJ 50 MCG/1 ML 2 ML VIAL IV PRN; +FENTANYL CITRATE INJ 50 MCG/1 ML 2 ML VIAL ONE; +FLUMAZENIL 0.1 MG/1 ML 10 ML VIAL IV PRN; +GELATIN SPONGE 12-7MM ONE; +GLYCOPYRROLATE INJ 0.2 MG/ML VIAL ONE; +LIDO 2%/EPINEPHRINE 1:100000 20 ML VIAL ONE; +LIDOCAINE 4% MPF SOAK 5 ML = 1 DOSE ONE; +LIDOCAINE HCL 2% 2 ML VIAL (20MG/ML) ONE; +MIDAZOLAM HCL 1 MG/ML 2ML VIAL ONE; +NALOXONE HCL 0.4 MG/1 ML VIAL/CARP IV PRN; +NEOSTIGMINE METHYLSULFATE 5 MG/5 ML SYR ONE; +ONDANSETRON INJ 2 MG/ML 2 ML VIAL IV PRN; +ONDANSETRON INJ 2 MG/ML 2 ML VIAL ONE; +OXYCODONE/ACETAMINOPHEN 5-325 TAB ONE; +OXYCODONE/ACETAMINOPHEN 5-325 TAB PO PRN; +PROMETHAZINE HCL INJ 12.5 MG in SODIUM CHLORIDE 0.9% 50ML 50 ML IV PRN; +PROPOFOL IV EMULSION 10 MG/ML 20 ML VIAL ONE; +SODIUM CHLORIDE 0.9% 1000ML 1,000 ML IV SCH
[2018-03-15] MEDS: LACTATED RINGER'S 1000ML 1,000 ML IV SCH ×2 (06:49→08:56)
--- NOTE | 2018-03-15 08:12 | Discharge Instructions-SurgCtr ---
Discharge Instructions Date of Service Mar 15, 2018. Visit Reason for Visit: Septal Deviation Discharge Discharge Diagnosis / Problem: same Discharge Goals Goal(s): Improve function Activity Recommendations Activity Limitations: per Instructions/Follow-up section Anesthesia . Post Anesthesia Instructions: If you have had General Anesthesia or IV Sedation: * Do not drive today. * Resume driving when surgeon permits. * Do not make important decisions or sign legal documents today. * Call surgeon for: 1. Temperature elevations greater than 101 degrees F. 2. Uncontrollable pain. 3. Excessive bleeding. 4. Persistent nausea and vomiting. 5. Medication intolerance (nausea, vomiting or rash). * For nausea and vomiting use only clear liquids such as: tea, soda, bouillon until nausea subsides, then gradually increase diet as tolerated. * If you have any concerns or questions, call your surgeon's office. If physician is unavailable and it is an emergency, call 911 or go to the nearest emergency room. . Instructions / Follow-Up Instructions / Follow-Up ACTIVITY RECOMMENDATIONS: * Being up and around is good, but no strenuous activity, heavy lifting or physical exertion for one week. * Keep your head elevated 30 degrees when lying down or sleeping. * Do not blow your nose for 48 hours, sniff back instead. * Avoid hot showers. OVER THE COUNTER MEDICATIONS: * You may use Tylenol * Avoid aspirin or aspirin containing products, e.g. as they may increase bleeding. SPECIAL CARE INSTRUCTIONS: * Expect to have bloody drainage from your nose and/or down your throat for one to three days. Change drip pad as needed. * Begin irrigating your nose with saline solution today, at least six to ten times per day and sniff back to help remove old clots or crust. * You may experience nasal and facial congestion, pain and pressure, this is normal. * Please call with any significant and/or progressive pain, redness, swelling around the eyes, visual changes, fever of 101.5 degrees F, active bleeding or any problems or concerns. * If active bleeding occurs, spray the nose three times at one minute intervals with Afrin spray and call or cell phone: . If unable to reach the doctor, go to the nearest Emergency Department. Special Diet: * Avoid extremely hot fluids. FOLLOW UP VISIT: Follow-up Visit with Dr. Reed If not already scheduled, please call to schedule. Diet Recommendations Home Diet: no limitations Procedures Procedures Performed: Septoplasty, Celon Turbinate Pending Studies Studies pending at discharge: no Medical Emergencies . Who to Call and When: Medical Emergencies: If at any time you feel your situation is an emergency, please call 911 immediately. . Non-Emergent Contact Non-Emergency issues call your: Primary Care Provider . . "Provider Documentation" section prepared by Jacqueline Reed. [facility] [place] Drug Monitoring Program Search Results: no issues identified
--- NOTE | 2018-03-15 08:36 | Anesthesia Progress Nt - [facility] ---
Anesthesia Post Op Note Date & Time Mar 15, 2018 at 08:36 Vital Signs Pain Intensity: 6 Vital Signs Past 12 Hours Date Time Temp Pulse Resp B/P (MAP) Pulse Ox O2 Delivery O2 Flow Rate FiO2 03/15/18 08:06 36.2 65 16 119/78 98 Humidified Oxygen 6 Mask 03/15/18 06:32 36.7 70 20 119/82 (94) 95 Room Air Notes Mental Status: alert / awake / arousable, participated in evaluation Pt Amnestic to Procedure: Yes Nausea / Vomiting: adequately controlled Pain: adequately controlled Airway Patency, RR, SpO2: stable & adequate BP & HR: stable & adequate Hydration State: stable & adequate Anesthetic Complications: no major complications apparent
[2018-03-15 09:05] VITALS: TEMP 36.2
[2018-03-15 09:39] VITALS: BP 129/84; PULSE 61; O2SAT 99
--- NOTE | 2018-03-15 09:43 | OPERATIVE REPORT ---
DATE OF OPERATION: 03/15/2018 PREOPERATIVE DIAGNOSES: Septal deviation, chronic rhinitis. POSTOPERATIVE DIAGNOSES: Septal deviation, chronic rhinitis. PROCEDURE: Septoplasty with radiofrequency volume reduction of the inferior turbinates. SURGEON: Dr. Reed. ANESTHESIA: General endotracheal. COMPLICATIONS: None. BLOOD LOSS: 30 mL HISTORY: This 37-year-old gentleman is unable to breathe through his nose, has severe septal deviation. DETAILS OF PROCEDURE: The patient brought to the operating room and placed in supine position. General endotracheal anesthesia was induced, prepped, draped in usual sterile manner. Nose decongested using topical cottonoids with a solution of 4 mL of 4% Xylocaine mixed with 1 mL of epinephrine. Injection of 2% Xylocaine with 1:100,000 strength epinephrine was also used. The inferior turbinates were treated with radiofrequency volume reduction using the [employer] machine creating 4 lesions in each inferior turbinate. The inferior turbinates were fractured laterally. The left hemitransfixion incision was made, mucoperichondrium was elevated off the left side of the septum. The superior inferior tunnels were made. Cartilage inferiorly from the vomer maxillary crest and posteriorly from the perpendicular plate at the ethmoid, bilateral posterior tunnels were made. There was a rather large bony deviation of the perpendicular ethmoid toward the left superiorly and toward the right posteriorly and inferiorly. There was also a displacement of the cartilage from the vomer maxillary crest toward the left side inferiorly. The cartilage was trimmed inferiorly. The deviated portion of the perpendicular plate of the ethmoid was removed in small pieces using the [place]o-Cotter rongeurs. The bony spur inferiorly along with cartilaginous spur was removed using osteotome, the [place]-Cotter rongeurs and the Micaela forceps returning the septum to the midline. The septum was closed using a continuous mattress suture of 4-0 plain gut. Anterior nasal packing of Gelfoam was placed. The patient tolerated the procedure well and was taken to the recovery area in satisfactory condition. I attest to the content of the Intraoperative Record and any orders documented therein. Any exception s are noted below.
== END | disposition home or self-care (01) ==
LOC: X.SURG 06:21
PROVIDERS: ATTEND Otolaryngology
DX: J34.2 Deviated nasal septum (principal); J31.0 Chronic rhinitis; J45.909 Unspecified asthma, uncomplicated

== ENCOUNTER 2022-08-11 12:10 | Inpatient (IN) ==
--- NOTE | 2022-08-11 12:22 | Emergency Department Note ---
History of Present Illness General Chief complaint: Abdominal Pain Stated complaint: SHARP ABD PAIN UPPER RIGHT FOR 2 DAYS Time Seen by Provider: 08/11/22 12:20 History of Present Illness Maximum Pain Intensity: 8 This 41-year-old male patient presents to the emergency department for eval uation of sharp and stabbing right upper quadrant abdominal pain radiating to his back and RLQ for the past 2 days. Initially he thought that it was gas, but has tried [id number] gas relief medications without improvement. The pain is intermittent, but has periods of more severe pain. Pain is worse after eating. Had some nausea this morning, but no vomiting. Yesterday he had some burning with urination. Still has his gallbladder, but had appendectomy 3 years ago. Denies any chest pain or SOB. Soft formed BMs once a day. Has not taken anything else for the symptoms. He last ate/drank around 8 am this morning - Red Bull and Velvetta crackers. Takes a daily multivitamin, but no other medication on a regular basis. Home Medications Medication Instructions Recorded Confirmed Type ascorbic acid (vitamin C) 500 mg 500 mg PO QAM 09/26/18 08/11/22 History tablet (Vitamin C) multivitamin 1 tab PO QAM 09/26/18 08/11/22 History cholecalciferol (vitamin D3) 25 25 mcg PO QAM 04/30/21 08/11/22 History mcg (1,000 unit) capsule amoxicillin 875 mg-potassium 1 tab PO BID 2 weeks #28 tabs 08/12/22 Rx clavulanate 125 mg tablet Allergies Allergy/AdvReac Type Severity Reaction Status Date / Time No Known Allergies Allergy Verified 08/11/22 16:19 Past Med/Surg History Medical History Dyslipidemia monitoring GERD (gastroesophageal reflux disease) diet controlled. Surgical History History of appendectomy S/P correction of deviated nasal septum Family History Grandmother (Maternal) Familial stomach cancer Grandmother (Maternal) Myocardial infarction Mother Hypertension Dyslipidemia Arthritis Denies family history of Prostate cancer Breast cancer Colorectal cancer Social History Smoking Status: Never smoker Second Hand Exposure: No; Do You Dip or Chew Tobacco: No; Tobacco Cessation Education Requested by Patient: No Hx Alcohol Use: Yes Alcohol type: beer Alcohol Intake Frequency: 2-4 x/Month Hx Substance Use: No Preferred Language: [place] Islander Communication Ability: Effective Visual Impairment: Limited Hearing Ability: Normal Digital Advisor Required: No Beliefs That Will Affect Care: None marital status: Current Living Situation: Spouse current occupational status: employed Other Information That Helps Us Care for You: No Feels Safe at Home: Yes Safety Concerns: Feels Safe At This Time Childhood Exposure to Second-Hand Smoke: No caffeine: Yes Dental Care, Regularly: Yes Physical Activity Frequency: Does not Exercise Seatbelt Use: always Sunscreen Use: Yes Do you think of yourself as: lesbian/arora/homosexual Assistive Devices: None Review of Systems See HPI for pertinent positives & negatives. Physical Exam Vital Signs Vital Signs - 24 hr 08/11/22 16:00 Pulse Rate [Finger] 76 Pulse Rhythm [Finger] Regular Pulse Strength [Finger] Normal Respiratory Rate 20 Respiratory Effort / Characteristics Non-Labored Respiratory Depth Normal Respiratory Pattern Regular Blood Pressure [Left Arm] 136/94 Blood Pressure Mean [Left Arm] 108 Blood Pressure Position [Left Arm] Lying Pulse Oximetry 98 Oxygen Delivery Method Room Air VITALS: Vitals are noted on the nurse's note and reviewed by myself. GENERAL: Non toxic, no acute distress, non-diaphoretic. SKIN: Capillary refill <2 sec. EARS: External auditory canals clear, tympanic membranes pearly [place] without erythema or effusion bilaterally. EYES: PERRLA. EOMI. Conjunctivae without injection, sclerae without icterus. NOSE: Patent without discharge. MOUTH: Mucous membranes moist. Uvula midline. Airway patent. NECK: Supple without nuchal rigidity. HEART: Regular rate and rhythm without murmurs gallops or rubs. LUNGS: Clear to auscultation bilaterally without wheezes, rales or rhonchi. No retractions or accessory muscle use. ABDOMEN: Positive bowel sounds x 4. Normal tympanic percussion. Soft, maximally tender to palpation in the right upper quadrant and epigastric area, but also tender to palpation in the right lower quadrant, without masses or organomegaly. Villareal sign mildly positive. No guarding or rebound tenderness. MUSCULOSKELETAL: No gross musculoskeletal defects. NEURO: Patient was alert and oriented to person place and time. No focal neurological deficits. Course Administered Medications Sodium Chloride (Nss 1000ml) 1,000 mls @ 110 mls/hr IV .Q9H6M ARACELI Stop: 09/10/22 20:52 Last Admin: 08/12/22 06:01 Dose: 110 mls/hr Documented By: Infusion: 08/12/22 06:01 Dose: 110 mls/hr Documented By: Admin: 08/11/22 21:31 Dose: 110 mls/hr Documented By: AB Piperacillin Sod/Tazobactam (Sod 3.375 gm/ Dextrose) 115 mls @ 28.75 mls/hr IV Q8H ARACELI; Protocol Stop: 08/21/22 21:14 Last Admin: 08/12/22 13:29 Dose: 28.8 mls/hr Documented By: Infusion: 08/12/22 09:46 Dose: 0 mls/hr Documented By: Admin: 08/12/22 05:21 Dose: 28.8 mls/hr Documented By: Infusion: 08/12/22 01:34 Dose: 0 mls/hr Documented By: Admin: 08/11/22 21:31 Dose: 28.8 mls/hr Documented By: Acetaminophen (Ofirmev) 1,000 mg in 100 mls @ 400 mls/hr IV Q8H PRN PRN Reason: Mild Pain Stop: 08/14/22 20:52 Last Infusion: 08/12/22 05:44 Dose: 0 mls/hr Documented By: Admin: 08/12/22 05:25 Dose: 400 mls/hr Documented By: Discontinued Medications Sodium Chloride (Nss 1000ml) 1,000 mls @ 999 mls/hr IV .Q1H1M STA Stop: 08/11/22 13:31 Last Infusion: 08/11/22 14:52 Dose: 0 mls/hr Documented By: Admin: 08/11/22 12:55 Dose: 999 mls/hr Documented By: ASHISH Piperacillin Sod/Tazobactam Sod (Zosyn) 4.5 gm in 120 mls @ 240 mls/hr IV NOW ONE Stop: 08/11/22 16:11 Last Infusion: 08/11/22 17:58 Dose: 0 mls/hr Documented By: Admin: 08/11/22 15:52 Dose: 240 mls/hr Documented By: ASHISH Ioversol (Optiray 350 100ml) 94 ml IV ONCE ONE Stop: 08/11/22 14:38 Last Admin: 08/11/22 14:37 Dose: 94 ml Documented By: PINEDA Ketorolac Tromethamine (Ketorolac Tromethamine 15 Mg/Ml Vial) 10 mg IV NOW STA Stop: 08/11/22 12:32 Last Admin: 08/11/22 12:55 Dose: 10 mg Documented By: ASHISH Morphine Sulfate (Morphine Sulfate 4 Mg/Ml 1 Ml Carp\Vial) 4 mg IV NOW STA Stop: 08/11/22 15:00 Last Admin: 08/11/22 15:26 Dose: 4 mg Documented By: ASHISH Morphine Sulfate (Morphine Sulfate 4 Mg/Ml 1 Ml Carp\Vial) 4 mg IV NOW STA Stop: 08/11/22 18:40 Last Admin: 08/11/22 19:28 Dose: 4 mg Documented By: JAX Ondansetron HCl (Ondansetron Inj 2 Mg/Ml 2 Ml Vial) 4 mg IV NOW STA Stop: 08/11/22 15:00 Last Admin: 08/11/22 15:26 Dose: 4 mg Documented By: ASHISH Ondansetron HCl (Ondansetron Inj 2 Mg/Ml 2 Ml Vial) 4 mg IV NOW STA Stop: 08/11/22 18:40 Last Admin: 08/11/22 19:28 Dose: 4 mg Documented By: JAX Medical Decision Making Differential Diagnosis Differential diagnosis includes hepatitis, pancreatitis, cholecystitis, ch olelithiasis, appendicitis, kidney stone, pyelonephritis, UTI, gastritis, gastroenteritis, mesenteric adenitis, obstruction, constipation, hernia, abdominal abscess, perforation, diverticulitis, IBD, ischemic colitis, abdominal aortic aneurysm, testicular torsion, or others. Laboratory Data Attestation: I reviewed the patient's lab results. 08/11/22 12:50 08/11/22 12:50 Lab Results 08/11/22 08/11/22 08/11/22 Range/Units 12:42 12:50 12:50 WBC 11.67 H (4.8-10.8) K/ul RBC 5.85 (4.63-6.08) M/uL Hgb 18.1 H (14.0-18.0) g/dl Hct 50.2 (40.1-51.0) % MCV 85.8 (80.0-100.0) fL MCH 30.9 (25.0-34.0) pg MCHC 36.1 H (32.0-36.0) g/dL RDW Std Deviation 38.0 (36.4-46.3) fL RDW Coeff of Ary 12.1 (11.5-14.5) % Plt Count 286 (130-400) K/uL MPV 11.0 (9.4-12.4) fL Immature Gran % (Auto) 0.4 % Neut % (Auto) 74.5 % Lymph % (Auto) 14.6 % [place] % (Auto) 6.1 % Eos % (Auto) 4.2 % Baso % (Auto) 0.2 % Neut # (Auto) 8.70 H (1.4-6.5) K/uL Lymph # (Auto) 1.70 (1.2-3.4) K/uL [place] # (Auto) 0.71 (0.24-0.82) K/uL Eos # (Auto) 0.49 (0-0.50) K/uL Baso # (Auto) 0.02 (0-0.2) K/uL Immature Gran # (Auto) 0.05 H (0.00-0.02) K/uL Sodium 140 (136-145) mmol/L Potassium 3.4 L (3.5-5.1) mmol/L Chloride 102 (98-107) mmol/L Carbon Dioxide 29 (21-32) mmol/L Anion Gap 9 (3-11) BUN 10 (6-23) mg/dl Creatinine 1.00 (0.6-1.4) mg/dl Est Cr Clr Drug Dosing 95.0 ml/min Est GFR ( Amer) 108.6 ml/min Est GFR (Non-Af Amer) 93.7 ml/min BUN/Creatinine Ratio 10.0 (10-20) Glucose 88 (70-99(Fasting)) mg/dl Calcium 10.3 H (8.5-10.1) mg/dl Total Bilirubin 1.3 H (0.2-1.0) mg/dl AST 29 (13-39) U/L ALT 57 H (7-52) U/L Alkaline Phosphatase 113 H (34-104) U/L Troponin I High Sens 3.2 (0-20) pg/ml Total Protein 8.8 H (6.0-8.3) gm/dl Albumin 5.3 H (3.4-5.0) gm/dl Globulin 3.5 (2.5-4.0) gm/dl Albumin/Globulin Ratio 1.5 (0.9-2) Lipase 65 (11-82) U/L Urine Color Yellow Urine Appearance Clear (Clear) Urine pH 7.0 (4.5-7.5) Ur Specific [place] 1.023 (1.000-1.030) Urine Protein Negative (Negative) Urine Glucose (UA) Negative (Negative) Urine Ketones Negative (Negative) Urine Blood Negative (Negative) Urine Nitrite Negative (Negative) Urine Bilirubin Negative (Negative) Urine Urobilinogen Negative (Negative) Ur Leukocyte Esterase Negative (Negative) Imaging Data Radiologist's Impression: Abdomen/Pelvis CT 08/11/22 12:[address] WITH IV CONTRAST CT DOSE: 312.45 mGy.cm HISTORY: RUQ and RLQ abdominal pain TECHNIQUE: Multiaxial CT images of the abdomen and pelvis were performed following the use of intravenous contrast. A dose lowering technique was utilized adhering to the principles of ALARA. COMPARISON STUDY: Abdomen and pelvis CT 07/11/2017. FINDINGS: The lung bases are clear. No pneumoperitoneum. No pneumatosis is status post partial appendectomy. There is a 3 cm residual appendiceal stump identified which is distended and filled with fluid. This measures up to 16 mm in diameter. There is surrounding inflammatory change and a few small lymph nodes. Therefore, this is consistent with residual stump appendicitis. This is best seen on image 307. No perforation or abscess identified at this time. Hepatic steatosis. No hepatic or splenic masses. The gallbladder, pancreas, adrenal glands, and kidneys are unremarkable. No hydronephrosis. The bladder is unremarkable. The prostate gland is mildly enlarged. Trace pelvic free fluid. No dilated loops of small bowel to suggest an obstruction. No retroperitoneal lymphadenopathy. The main portal vein is patent. Normal caliber abdominal aorta. IMPRESSION: There is a 3 cm residual appendiceal stump identified which is distended and filled with fluid. This measures up to 16 mm in diameter. There is surrounding inflammatory change and a few small lymph nodes. Therefore, this is consistent with residual stump appendicitis. Surgical consultation recommended. ACT 112: Negative or not required by law. Electronically signed by: Vidal Pickett M.D. 08/11/2022 3:21 PM Gallbladder Ultrasound 08/11/22 12:31 ABDOMINAL ULTRASOUND, RIGHT UPPER QUADRANT HISTORY: RUQ Abdominal pain. COMPARISON: Abdomen and pelvis CT 07/11/2017. FINDINGS: Pancreas: The pancreatic tail is obscured by overlying bowel gas. The remaining portions of the pancreas are within normal limits. Liver: The liver is echogenic consistent with fatty change. Gallbladder: No gallbladder wall thickening. No gallstones. CBD: 3 mm. Right kidney: No hydronephrosis. IMPRESSION: 1. Normal gallbladder. No gallstones. 2. Hepatic steatosis. ACT 112: Negative or not required by law. Electronically signed by: Vidal Pickett M.D. 08/11/2022 3:55 PM MDM Narrative I examined the patient. An IV lock was placed and labs were drawn. The patient was given 1 L normal saline solution bolus. He was given Toradol 10 mg IV for pain followed by morphine 4 mg IV x2 and Zofran 4 mg IV x2. White blood cell count was elevated 11.67 and hemoglobin 18.1. Potassium low at 3.4. Total bilirubin elevated at 1.3, ALT elevated at 57, and alk phos elevated at 113. Urinalysis negative for blood or infection. COVID-negative. RUQ ultrasound was reviewed by myself and read by radiology as above and showed normal gallbladder with no gallstones or evidence of cholecystitis. Hepatic steatosis is present. CT scan of the abdomen pelvis with IV contrast was reviewed by myself and read by radiology as above and shows a 3 cm residual appendiceal stump identified which is distended and filled with fluid. This measures up to 16 mm in diameter. There is surrounding inflammatory changes and a few small lymph nodes. Therefore, this is consistent with residual stump appendicitis. The patient was given Zosyn 4.5 g IV. I spoke with general surgery who will admit the patient for IV antibiotics to see how he responds over the next 12 to 24 hours. They will tentatively plan a diagnostic laparoscopy with possible appendectomy tomorrow. Please refer to their dictation for further details. The patient was in stable condition at time of transfer of care. Impression & Plan Recurrent appendicitis Discharge Plan Visit Data Chief Complaint: Abdominal Pain Stated Complaint: SHARP ABD PAIN UPPER RIGHT FOR 2 DAYS ED Provider: Alex Rice ED Midlevel Provider: Mariah Aly Discharge Problem: Recurrent appendicitis Patient Disposition: Admitted As Inpatient Condition: Good Discharge Instructions Interventions: ED Discharge Assessment Last Done: 08/11/22 20:47
[2022-08-11] MEDS ORDERED: KETOROLAC TROMETHAMINE 15 MG/ML VIAL IV STA (12:31)
[2022-08-11] MEDS ORDERED: SODIUM CHLORIDE 0.9% 1000ML 1,000 ML IV STA (12:31)
[2022-08-11 13:11] LABS: Basophils # (auto) 0.02 K/uL (0-0.2); Basophils % (auto) 0.2 %; Eosinophils # (auto) 0.49 K/uL (0-0.50); Eosinophils % (auto) 4.2 %; Hematocrit (blood only) 50.2 % (40.1-51.0); Hemoglobin 18.1 g/dl (14.0-18.0); Immature Granulocytes # (auto) 0.05 K/uL (0.00-0.02); Immature Granulocytes % (auto) 0.4 %; Lymphocytes % (auto) 14.6 %; Mean Corpuscular Hemoglobin 30.9 pg (25.0-34.0); Mean Corpuscular Hgb Conc 36.1 g/dL (32.0-36.0); Mean Corpuscular Volume 85.8 fL (80.0-100.0); Monocytes # (auto) 0.71 K/uL (0.24-0.82); Monocytes % (auto) 6.1 %; Neutrophils % (auto) 74.5 %; Platelet Count 286 K/uL (130-400); RDW Coefficient of Variation 12.1 % (11.5-14.5); Red Blood Count 5.85 M/uL (4.63-6.08); White Blood Count 11.67 K/ul (4.8-10.8)
[2022-08-11 13:21] LABS: Appearance Urine Clear (Clear); Bilirubin Urine Negative (Negative); Blood Urine Negative (Negative); Color Urine Yellow; Glucose Urine UA Negative (Negative); Ketones Urine Negative (Negative); Leukocyte Esterase Urine Negative (Negative); Nitrite Urine Negative (Negative); Protein Urine Negative (Negative); Specific Gravity Urine 1.023 (1.000-1.030); Urobilinogen Urine Negative (Negative)
[2022-08-11 13:37] LABS: Albumin Globulin Ratio 1.5 (0.9-2); Albumin Level 5.3 gm/dl (3.4-5.0); Bilirubin,Total 1.3 mg/dl (0.2-1.0); Calcium 10.3 mg/dl (8.5-10.1); Est GFR (African American) 108.6 ml/min; Est GFR (Non-African American) 93.7 ml/min; Globulin 3.5 gm/dl (2.5-4.0); Potassium 3.4 mmol/L (3.5-5.1); Total Protein 8.8 gm/dl (6.0-8.3)
[2022-08-11 13:38] LABS: Troponin I High Sensitivity 3.2 pg/ml (0-20)
[2022-08-11] MEDS ORDERED: OPTIRAY 350 100ml IV ONE (14:37)
[2022-08-11] MEDS ORDERED: ONDANSETRON INJ 2 MG/ML 2 ML VIAL IV STA ×2 (14:59→18:39)
[2022-08-11] MEDS ORDERED: MoRPHine SULFATE 4 MG/ML 1 ML CARP\\VIAL IV STA ×2 (14:59→18:39)
--- NOTE | 2022-08-11 15:22 | CT Scan Report ---
ABDOMEN AND PELVIS CT WITH IV CONTRAST CT DOSE: 312.45 mGy.cm HISTORY: RUQ and RLQ abdominal pain TECHNIQUE: Multiaxial CT images of the abdomen and pelvis were performed following the use of intrave nous contrast. A dose lowering technique was utilized adhering to the principles of ALARA. COMPARISON STUDY: Abdomen and pelvis CT 07/11/2017. FINDINGS: The lung bases are clear. No pneumoperitoneum. No pneumatosis is status post partial append ectomy. There is a 3 cm residual appendiceal stump identified which is distended and filled with flui d. This measures up to 16 mm in diameter. There is surrounding inflammatory change and a few small ly mph nodes. Therefore, this is consistent with residual stump appendicitis. This is best seen on image 307. No perforation or abscess identified at this time. Hepatic steatosis. No hepatic or splenic mas ses. The gallbladder, pancreas, adrenal glands, and kidneys are unremarkable. No hydronephrosis. The bladder is unremarkable. The prostate gland is mildly enlarged. Trace pelvic free fluid. No dilated l oops of small bowel to suggest an obstruction. No retroperitoneal lymphadenopathy. The main portal ve in is patent. Normal caliber abdominal aorta. IMPRESSION: There is a 3 cm residual appendiceal stump identified which is distended and filled with fluid. This measures up to 16 mm in diameter. There is surrounding inflammatory change and a few small lymph node s. Therefore, this is consistent with residual stump appendicitis. Surgical consultation recommended. ACT 112: Negative or not required by law. Electronically signed by: Vidal Pickett M.D. 08/11/2022 3:21 PM
[2022-08-11] MEDS ORDERED: PIPERACILLIN/TAZOBACTAM 4.5 GM/120 ML BAG IV ONE (15:42)
--- NOTE | 2022-08-11 15:56 | Ultrasound Report ---
ABDOMINAL ULTRASOUND, RIGHT UPPER QUADRANT HISTORY: RUQ Abdominal pain. COMPARISON: Abdomen and pelvis CT 07/11/2017. FINDINGS: Pancreas: The pancreatic tail is obscured by overlying bowel gas. The remaining portions of the pancr eas are within normal limits. Liver: The liver is echogenic consistent with fatty change. Gallbladder: No gallbladder wall thickening. No gallstones. CBD: 3 mm. Right kidney: No hydronephrosis. IMPRESSION: 1. Normal gallbladder. No gallstones. 2. Hepatic steatosis. ACT 112: Negative or not required by law. Electronically signed by: Vidal Pickett M.D. 08/11/2022 3:55 PM
--- NOTE | 2022-08-11 17:26 | History & Physical Report ---
Date of Service August 11, 2022 Assessment & Plan (1) Recurrent appendicitis: Plan: CT images and results personally viewed by myself, he does have what appears to be an appendiceal stump appendicitis with surrounding inflammation Will admit the patient to the surgical service keep him n.p.o. and start IV antibiotics We will see how responds over the next 12 to 24 hours We will tentatively plan on a diagnostic laparoscopy, possible appendectomy, possible open tomorrow History of Present Illness Chief Complaint: Abdominal pain Primary Care Provider: Ruddy Alonso DO This is a 41-year-old male presents emergency room with 48 hours of right-sided abdominal pain. He describes the pain as starting in his right upper quadrant and eventually radiating down to his right lower quadrant. That sharp in nature and relieved by nothing. He has a history of a laparoscopic appendectomy in June [address] Camarena. Otherwise no other abdominal surgeries. He also has some associated nausea without emesis. Denies any fevers or chills. He denies any constipation or diarrhea. Denies any hematochezia or melena. He is relatively healthy and does not take any medications other than vitamins. Allergies Allergy/AdvReac Type Severity Reaction Status Date / Time No Known Allergies Allergy Verified 08/11/22 16:19 Home Medications Medication Instructions Recorded Confirmed Type ascorbic acid (vitamin C) 500 mg 500 mg PO QAM 09/26/18 08/11/22 History tablet (Vitamin C) multivitamin 1 tab PO QAM 09/26/18 08/11/22 History cholecalciferol (vitamin D3) 25 25 mcg PO QAM 04/30/21 08/11/22 History mcg (1,000 unit) capsule Past Med/Surg History Medical History Dyslipidemia monitoring GERD (gastroesophageal reflux disease) diet controlled. Surgical History History of appendectomy S/P correction of deviated nasal septum Family History Grandmother (Maternal) Familial stomach cancer Grandmother (Maternal) Myocardial infarction Mother Hypertension Dyslipidemia Arthritis Denies family history of Prostate cancer Breast cancer Colorectal cancer Social History Smoking Status: Never smoker Second Hand Exposure: No; Hx Alcohol Use: Yes Alcohol type: beer, wine and hard liquor Alcohol Intake Frequency: 2-4 x/Month Hx Substance Use: No Preferred Language: Burmese Communication Ability: Effective Visual Impairment: Limited Hearing Ability: Normal 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 Beliefs That Will Affect Care: None marital status: Current Living Situation: Spouse current occupational status: employed Feels Safe at Home: Yes Childhood Exposure to Second-Hand Smoke: No caffeine: Yes Dental Care, Regularly: Yes Physical Activity Frequency: Does not Exercise Seatbelt Use: always Sunscreen Use: Yes Do you think of yourself as: lesbian/arora/homosexual Assistive Devices: Contacts Review of Systems Constitutional: no fever and no chills Eyes: no worsening vision Ear, Nose, Mouth, Throat: no ear pain and no hearing loss Respiratory: no cough and no dyspnea Cardiovascular: no chest pain and no dyspnea on exertion Gastrointestinal: + abdominal pain and + nausea; no vomiting, no constipation, no diarrhea/loose stools, no blood in stools and no melena Genitourinary: + dysuria Musculoskeletal: no back pain and no neck pain Integumentary: no rash and no dry skin Neurologic: no headache(s) Psychiatric: no behavioral changes and no depression Physical Exam Constitutional: WD/WN, vitals as above Eyes: PERRL, conjunctivae normal, anicteric sclerae ENMT: external ear and nose normal, oropharynx normal Neck: trachea midline, no thyromegaly Respiratory: normal respiratory effort, lungs clear to auscultation Cardiovascular: RRR, no murmur, no edema Gastrointestinal (Abdomen): Inspection/Auscultation: abdomen normal to inspection; abdomen not distended Percussion/Palpation: + abdomen tender (Right lower quadrant), + guarding and abdomen soft; abdomen not rigid and no hernia Musculoskeletal: no cyanosis or clubbing, extremities motor strength 5/5 Skin: no rashes, warm and dry Neurologic: PERRL, EOMI, accommodation nl, no face palsy, no dysarthria Psychiatric: A+Ox3, euthymic affect Results & Data Results & Data ([facility]) Vital Signs (Past 12 Hours) Vital Signs Temp Pulse Pulse Resp BP BP Pulse Ox 08/11/22 16:00 76 20 136/94 98 08/11/22 13:34 72 20 131/93 99 08/11/22 12:31 96 08/11/22 12:16 36.4 C L 83 16 148/100 H 98 O2 Del Method 08/11/22 16:00 Room Air 08/11/22 13:34 Room Air 08/11/22 12:31 Room Air 08/11/22 12:16 Room Air Diagnostic Findings ABDOMEN AND PELVIS CT WITH IV CONTRAST CT DOSE: 312.45 mGy.cm HISTORY: RUQ and RLQ abdominal pain TECHNIQUE: Multiaxial CT images of the abdomen and pelvis were performed following the use of intravenous contrast. A dose lowering technique was utilized adhering to the principles of ALARA. COMPARISON STUDY: Abdomen and pelvis CT 07/11/2017. FINDINGS: The lung bases are clear. No pneumoperitoneum. No pneumatosis is status post partial appendectomy. There is a 3 cm residual appendiceal stump identified which is distended and filled with fluid. This measures up to 16 mm in diameter. There is surrounding inflammatory change and a few small lymph nodes. Therefore, this is consistent with residual stump appendicitis. This is best seen on image 307. No perforation or abscess identified at this time. Hepatic steatosis. No hepatic or splenic masses. The gallbladder, pancreas, adrenal glands, and kidneys are unremarkable. No hydronephrosis. The bladder is unremarkable. The prostate gland is mildly enlarged. Trace pelvic free fluid. No dilated loops of small bowel to suggest an obstruction. No retroperitoneal lymphadenopathy. The main portal vein is patent. Normal caliber abdominal aorta. IMPRESSION: There is a 3 cm residual appendiceal stump identified which is distended and filled with fluid. This measures up to 16 mm in diameter. There is surrounding inflammatory change and a few small lymph nodes. Therefore, this is consistent with residual stump appendicitis. Surgical consultation recommended. PG Care Time/CCT Total # of Minutes Spent Total Time Spent with Patient: Total time spent is greater than 50% in coordination of care (as documented) at patient's floor/unit and/or counseling patient: Coding Level of Care Code 86920 INT INP/OBS CARE 3/75MIN Diagnoses Recurrent appendicitis K36
[2022-08-11] MEDS ORDERED: ACETAMINOPHEN 1,000 MG/100 ML VIAL IV PRN (20:53)
[2022-08-11] MEDS ORDERED: MoRPHine SULFATE 4 MG/ML 1 ML CARP\\VIAL IV PRN (20:53)
[2022-08-11] MEDS ORDERED: MoRPHine SULFATE 2 MG/ML CARP IV PRN (20:53)
[2022-08-11] MEDS ORDERED: ONDANSETRON INJ 2 MG/ML 2 ML VIAL IV PRN (20:53)
[2022-08-11] MEDS: SODIUM CHLORIDE 0.9% 1000ML 1,000 ML IV SCH (21:31)
[2022-08-11] MEDS: PIPERACILLIN/TAZOBACTAM 3.375 GM in DEXTROSE 5% 100 ML IV SCH (21:31)
[2022-08-12] MEDS: PIPERACILLIN/TAZOBACTAM 3.375 GM in DEXTROSE 5% 100 ML IV SCH ×3 (05:21→20:15)
[2022-08-12] MEDS: SODIUM CHLORIDE 0.9% 1000ML 1,000 ML IV SCH ×2 (06:01→15:37)
--- NOTE | 2022-08-12 06:59 | Anesthesiology Consultation ---
Date of Service August 12, 2022 Assessment & Plan (1) Encounter for pre-operative examination: Chart Review Chart Review: entry level initiated History Surgery Operation Date: 08/12/22 08:25 Proposed Procedures p Laparoscopic Appendectomy - Tiburcio Vogt DO Height/Weight Height: 5 ft 8 in Weight: 73.2 kg Allergies Allergy/AdvReac Type Severity Reaction Status Date / Time No Known Allergies Allergy Verified 08/11/22 16:19 Medications Home Medications Medication Instructions Recorded Confirmed Last Taken ascorbic acid (vitamin C) 500 mg 500 mg PO QAM 09/26/18 08/11/22 05/03/21 tablet (Vitamin C) multivitamin 1 tab PO QAM 09/26/18 08/11/22 05/03/21 cholecalciferol (vitamin D3) 25 25 mcg PO QAM 04/30/21 08/11/22 05/03/21 mcg (1,000 unit) capsule Active Medications Generic Name Dose Route Start Last Admin Trade Name Freq PRN Reason Stop Dose Admin Sodium Chloride 1,000 mls @ 110 mls/hr 08/11/22 20:53 08/12/22 06:01 Nss 1000ml IV 09/10/22 20:52 110 mls/hr .Q9H6M ARACELI Administration Piperacillin Sod/Tazobactam 115 mls @ 28.75 mls/hr 08/11/22 21:15 08/12/22 05:21 Sod 3.375 gm/ Dextrose IV 08/21/22 21:14 28.8 mls/hr Q8H ARACELI Administration Protocol Acetaminophen 1,000 mg in 100 mls @ 400 mls/hr 08/11/22 20:53 08/12/22 05:44 Ofirmev IV 08/14/22 20:52 Infused Q8H PRN Infusion Mild Pain Past Medical History Medical History Dyslipidemia monitoring GERD (gastroesophageal reflux disease) diet controlled. Past Family History Family History Grandmother (Maternal) Familial stomach cancer Grandmother (Maternal) Myocardial infarction Mother Hypertension Dyslipidemia Arthritis Denies family history of Prostate cancer Breast cancer Colorectal cancer Past Surgical History Surgical History History of appendectomy S/P correction of deviated nasal septum Social History Smoking Status: Never smoker Do You Dip or Chew Tobacco: No Hx Alcohol Use: Yes Alcohol type: beer alcohol intake frequency: a few times a month Hx Substance Use: No substance use type: does not use Physical Exam Vital Signs Last Vital Signs Temp 98.6 F 08/11/22 22:09 Pulse 70 08/11/22 22:09 Resp 18 08/11/22 22:09 BP 128/87 08/11/22 22:09 Pulse Ox 98 08/11/22 22:09 O2 Del Method 08/11/22 22:09 Testing Laboratory Results 08/11/22 12:50 08/11/22 12:50 Urine Color Yellow 08/11/22 12:42 Urine Appearance Clear (Clear) 08/11/22 12:42 Urine pH 7.0 (4.5-7.5) 08/11/22 12:42 Ur Specific [place] 1.023 (1.000-1.030) 08/11/22 12:42 Urine Protein Negative (Negative) 08/11/22 12:42 Urine Glucose (UA) Negative (Negative) 08/11/22 12:42 Urine Ketones Negative (Negative) 08/11/22 12:42 Urine Nitrite Negative (Negative) 08/11/22 12:42 Ur Leukocyte Esterase Negative (Negative) 08/11/22 12:42 Electrocardiogram Date: 08/11/22 Findings: + NSR @ (62 bpm)
[2022-08-12 09:41] LABS: BUN Creatinine Ratio 9.7 (10-20); Calcium 8.5 mg/dl (8.5-10.1); Creatinine Clr Calc Pharmacy 92.2 ml/min; Est GFR (African American) 104.8 ml/min; Est GFR (Non-African American) 90.4 ml/min; Potassium 3.7 mmol/L (3.5-5.1)
[2022-08-12 09:53] LABS: Basophils # (auto) 0.01 K/uL (0-0.2); Basophils % (auto) 0.1 %; Eosinophils # (auto) 0.35 K/uL (0-0.50); Eosinophils % (auto) 3.5 %; Hematocrit (blood only) 41.8 % (40.1-51.0); Hemoglobin 14.5 g/dl (14.0-18.0); Immature Granulocytes # (auto) 0.02 K/uL (0.00-0.02); Immature Granulocytes % (auto) 0.2 %; Lymphocytes # (auto) 1.79 K/uL (1.2-3.4); Lymphocytes % (auto) 17.8 %; Mean Corpuscular Hemoglobin 30.1 pg (25.0-34.0); Mean Corpuscular Hgb Conc 34.7 g/dL (32.0-36.0); Mean Corpuscular Volume 86.7 fL (80.0-100.0); Mean Platelet Volume 11.2 fL (9.4-12.4); Monocytes # (auto) 0.78 K/uL (0.24-0.82); Monocytes % (auto) 7.8 %; Neutrophils % (auto) 70.6 %; Platelet Count 221 K/uL (130-400); RDW Coefficient of Variation 12.1 % (11.5-14.5); RDW Standard Deviation 38.6 fL (36.4-46.3); Red Blood Count 4.82 M/uL (4.63-6.08); White Blood Count 10.05 K/ul (4.8-10.8)
--- NOTE | 2022-08-12 09:57 | Surgery Progress Note ---
Date of Service August 12, 2022 Assessment & Plan (1) Recurrent appendicitis: Plan: Patient with history of appendectomy 3 years ago here with stump appendicitis -Admitted yesterday and kept NPO with IVF and started on IV zosyn -WBC 10 (11). His vital signs are stable and he is afebrile -On exam patient's abdomen is soft with tenderness to palpation in the RLQ -Would prefer to hold off on acute surgical intervention to allow inflammation to down. continue on IV abx while in house and transition to po at home.. sips/chips for now -If improving can consider further diet advancement starting tomorrow -F/u in clinic with Dr. Vogt within 1-2 weeks if discharges over the wknd Admission and Anticipated Discharge Date Admission Date: August 11, 2022 Supervising Physician Co-Signing Physician Notes I personally saw and evaluated the patient with Isela Alejandra PA-C and agree with the assessment and plan. 41-year-old male with stump appendicitis He is improved with IV antibiotics, will continue these for another day and keep n.p.o. We will try to treat him conservatively over the weekend Plan would be to treat this episode with IV antibiotics and then at a later date plan for an interval appendectomy Patient is okay with this plan His diet can likely be advanced tomorrow if he continues to be improved Subjective Patient feeling mildly better. Still experiencing some right sided belly pain. Gas/pressure pains has improved. He denies nausea/vomiting. Physical Exam Physical Exam: awake/alert Respiratory: normal respiratory effort Gastrointestinal (Abdomen): Inspection/Auscultation: + abdomen distended (mild) Percussion/Palpation: + abdomen tender (ttp in the RLQ) and abdomen soft Results & Data ([facility]) Vital Signs (Past 12 Hours) Vital Signs Temp Pulse Resp BP BP Pulse Ox O2 Del Method 08/12/22 07:40 36.9 C 67 16 108/65 96 Room Air 08/11/22 22:09 37.0 C 70 18 128/87 98 Room Air PG Care Time/CCT Total # of Minutes Spent Total Time Spent with Patient: Total time spent is greater than 50% in coordination of care (as documented) at patient's floor/unit and/or counseling patient: Coding Level of Care Code 15047 SUB INP/OBS CARE 08/17MIN Diagnoses Recurrent appendicitis K36
--- NOTE | 2022-08-12 11:14 | Electrocardiogram Report ---
Test Reason : Blood Pressure : / mmHG Vent. Rate : 062 BPM Atrial Rate : 062 BPM P-R Int : 154 ms QRS Dur : 096 ms QT Int : 400 ms P-R-T Axes : 060 000 008 degrees QTc Int : 406 ms Normal sinus rhythm Normal ECG No previous ECGs available Confirmed by Bernabe Day ([id number]) on 08/12/2022 11:13:31 AM Referred By: REFERRED SELF Confirmed By:Bernabe Day
[2022-08-12] MEDS ORDERED: Nursing to Pharmacy Communication SCH (20:30)
[2022-08-13] MEDS: SODIUM CHLORIDE 0.9% 1000ML 1,000 ML IV SCH ×2 (00:54→09:38)
[2022-08-13] MEDS ORDERED: Nursing to Pharmacy Communication SCH (03:45)
[2022-08-13] MEDS: PIPERACILLIN/TAZOBACTAM 3.375 GM in DEXTROSE 5% 100 ML IV SCH (05:05)
[2022-08-13 06:40] LABS: Basophils # (auto) 0.02 K/uL (0-0.2); Basophils % (auto) 0.3 %; Eosinophils # (auto) 0.33 K/uL (0-0.50); Hematocrit (blood only) 40.6 % (40.1-51.0); Hemoglobin 14.3 g/dl (14.0-18.0); Immature Granulocytes # (auto) 0.02 K/uL (0.00-0.02); Immature Granulocytes % (auto) 0.3 %; Lymphocytes # (auto) 1.47 K/uL (1.2-3.4); Lymphocytes % (auto) 22.3 %; Mean Corpuscular Hemoglobin 30.6 pg (25.0-34.0); Mean Corpuscular Hgb Conc 35.2 g/dL (32.0-36.0); Mean Corpuscular Volume 86.9 fL (80.0-100.0); Mean Platelet Volume 10.7 fL (9.4-12.4); Monocytes # (auto) 0.49 K/uL (0.24-0.82); Monocytes % (auto) 7.4 %; Neutrophils # (auto) 4.26 K/uL (1.4-6.5); Neutrophils % (auto) 64.7 %; Platelet Count 209 K/uL (130-400); RDW Standard Deviation 38.3 fL (36.4-46.3); Red Blood Count 4.67 M/uL (4.63-6.08); White Blood Count 6.59 K/ul (4.8-10.8)
[2022-08-13 07:10] LABS: Calcium 8.7 mg/dl (8.5-10.1); Potassium 3.9 mmol/L (3.5-5.1)
[2022-08-13 07:16] LABS: Est GFR (African American) 124.5 ml/min; Est GFR (Non-African American) 107.5 ml/min
--- NOTE | 2022-08-13 13:02 | Surgery Progress Note ---
Date of Service August 13, 2022 Assessment & Plan (1) Recurrent appendicitis: Plan: Patient is much improved. Abdominal pain is nearly resolved. +passing flatus, +BM. He is tolerating a clear liquid diet. Will advance diet to full liquids. He is eager for discharge and if he continues to do well he is ok for discharge to home today. He is aware that he is to continue antibiotics at home. Prescription for Augmentin sent to pharmacy. He will follow-up with Dr. Vogt in clinic in the next 1-2 weeks. Will discuss plan for possible appendectomy in the future. Return precautions reviewed. Patient seen and examined with Dr. Jeter. Admission and Anticipated Discharge Date Admission Date: August 11, 2022 Supervising Physician Co-Signing Physician Notes Patient seen and examined, agree with above. Stump appendicitis, responding to antibiotics. DC to home, continue oral antibiotics for 1 week. Follow-up with Dr. Vogt to discuss interval appendectomy. Subjective Patient is resting comfortable in bed. He reports that his abdominal pain is nearly resolved. He is passing flatus and has moved his bowels. He is tolerating a clear liquid diet. He is eager for discharge. Review of Systems Constitutional: no fever and no chills Respiratory: no cough and no dyspnea Gastrointestinal: no abdominal pain, no nausea and no vomiting Physical Exam Physical Exam: awake/alert Constitutional: WD/WN, vitals as above Respiratory: normal respiratory effort Gastrointestinal (Abdomen): Inspection/Auscultation: + abdomen distended (mild) Percussion/Palpation: abdomen soft; abdomen nontender Results & Data ([facility]) Vital Signs (Past 12 Hours) Vital Signs Temp Pulse Resp BP BP Pulse Ox O2 Del Method 08/13/22 12:53 36.7 C 59 L 16 128/87 114/71 97 08/13/22 07:31 36.7 C 59 L 16 114/71 97 Room Air PG Care Time/CCT Total # of Minutes Spent Total Time Spent with Patient: Total time spent is greater than 50% in coordination of care (as documented) at patient's floor/unit and/or counseling patient: Coding Level of Care Code 32721 SUB INP/OBS CARE 2/35MIN Diagnoses Recurrent appendicitis K36
--- NOTE | 2022-08-16 13:57 | Discharge Summary ---
Date of Service August 13, 2022 Admission HPI Per Admitting Provider This is a 41-year-old male presents emergency room with 48 hours of right-sided abdominal pain. He describes the pain as starting in his right upper quadrant and eventually radiating down to his right lower quadrant. That sharp in nature and relieved by nothing. He has a history of a laparoscopic appendectomy in [place] [address] Camarena. Otherwise no other abdominal surgeries. He also has some associated nausea without emesis. Denies any fevers or chills. He denies any constipation or diarrhea. Denies any hematochezia or melena. He is relatively healthy and does not take any medications other than vitamins. Principal Diagnosis recurrent appendicitis Discharge Exam awake/alert, no distress Respiratory normal respiratory effort Gastrointestinal (Abdomen) Inspection/Auscultation: + abdomen distended (mild) Percussion/Palpation: abdomen soft; abdomen nontender Discharge Data Allergies Allergy/AdvReac Type Severity Reaction Status Date / Time No Known Allergies Allergy Verified 08/15/22 11:22 Consultations 08/11/22 18:39 ED Decision to Admit Stat Procedures Performed Operation Date: 08/12/22 08:25 <No data on this case meets the specified criteria> Ordered Studies 08/11/22 12:31 CT abd pelvis IV con only Stat US gallbladder Stat Hospital Course (1) Recurrent appendicitis: This is a 41y M with a PMH of appendicitis s/p laparoscopic appendectomy 3 years ago who presented to the [facility] ED on 08/11/[address] a/p obtained revealed evidence of stump appendicitis. The patient was admitted under the surgical service and kept NPO with IVF and started on IV abx. Throughout the patient's hospitalization he remained afebrile, abdominal pain continued to improve, and WBC downtrended from 11 to 6. As symptoms improved he was slowly reintroduced to a diet of which he tolerated well. Discussions in place regarding urgent surgical intervention vs. allowing inflammation to improve and continue a course of abx and plan for appendectomy in the near future. It was deemed appropriate to allow patient to recover from this incident, complete a course of abx, and to follow up in short order for surgical planning. On 08/13/22 the patient was deemed stable for discharge to home with close follow up with Dr. Vogt and on a course of oral antibiotics. Total Time Total Time Spent Total Time Spent (In Minutes): 15 Discharge Plan Discharge Items Patient Disposition: Home - Self-Care Reason For Visit: STUMP APPENDICITIS Discharge Diagnosis: recurrent appendicitis Condition on Discharge: Good Activity: Per Instructions section Lifting: Gradually increase as tolerated Bathing: No limitations Exercise/Sports: Wait until after follow-up appointment Non-emergency contact: Surgeon Call non-emergency contact if: you have any medication questions, your symptoms worsen, your pain is concerning for you, you have a fever, your temperature is above 101.5, your wound has increased redness, your wound has increased drainage and your wound pain has increased Follow-up/Referrals: Tiburcio Vogt DO [Physician] - (Please call to schedule follow up in clinic within 2 weeks) Ruddy Alonso DO [Primary Care Provider] - Diet: Low Fiber Addtl Attending Provider Instructions: complete the full course of antibiotic prescribed to you you may purchase Tylenol and/or Ibuprofen over the counter if needed for pain control over the next few days. take per manufacturers instructions Pending Studies at Discharge: No Stand-Alone Forms: My [facility], Smoking Cessation Medications and DC Order Prescriptions: New amoxicillin-pot clavulanate 875-125 mg tablet 1 tab PO BID 14 Days Qty: 28 0RF Continued cholecalciferol (vitamin D3) 25 mcg (1,000 unit) capsule 25 mcg PO QAM multivitamin Tablet 1 tab PO QAM ascorbic acid (vitamin C) [Vitamin C] 500 mg Tablet 500 mg PO QAM Discharge Orders: Discharge Order (Routine); Ordered 08/13/22 Ordered By: Brenda Sainz/Other Patient Handouts: Low-Fiber Diet Admission Data Admit Date/Time: 08/11/22 17:25 Attending Provider: Tiburcio Vogt Admit Provider: Tiburcio Vogt Primary Care Provider: Ruddy Alonso Other Providers: Tiburcio Vogt Other Interventions: Discharge Summary Assessment (RN) Last Done: 08/13/22 12:53 Coding Level of Care Code HOSP INP/OBS DISCH 30 MIN/LESS Diagnoses Recurrent appendicitis K36
== END 2022-08-13 13:21 | disposition home or self-care (01) | DRG 395 ==
LOC: ED 12:10 → 3W 17:25